=== PATIENT | female | born 1985 | race Caucasian/White ===

== ENCOUNTER 2018-07-20 15:42 | Emergency (ER) | payer OTHER ==
[2018-07-20] MEDS ORDERED: Sodium Chloride 0.9% 10 ML Syringe FLUSH PRN (16:06)
[2018-07-20] MEDS ORDERED: Sodium Chloride 0.9% 1,000 ML IV SCH (16:15)
--- NOTE | 2018-07-20 16:44 | EDM.PDOC ---
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 Started passing some blood clots yesterday afternoon and than heavier bleeding with more blood clots this afternoon for about the past 4 hours , now better. Has soaked about 4 pads this afternoon plus some clots in the toilet. Left Lower Abdominal Pain Score (Numeric/FACES): 9 - Related Data Allergies Allergy/AdvReac Type Severity Reaction Status Date / Time No Known Allergies Allergy Verified 07/20/18 15:54 Home Meds: Home Meds . 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: - Past Surgical History HEENT Surgical History: Reports: Other (See Below) Other HEENT Surgeries/Procedures: dental implants Female Surgical History: Reports: Section Social & Family History - Family History Family Medical History: Noncontributory - Tobacco Use Smoking Status *Q: Never Smoker - Caffeine Use Caffeine Use: Reports: Coffee - Recreational Drug Use Recreational Drug Use: No ED ROS GENERAL - Review of Systems Review Of Systems: See Below Constitutional: Denies: Fever (patient not aware of fever), Chills HEENT: Denies: Throat Pain Respiratory: Denies: Shortness of Breath Cardiovascular: Denies: Chest Pain GI/Abdominal: Reports: Abdominal Pain (no upper abd pain). Denies: Nausea, Vomiting : Reports: Discharge (there has been some spotting since the D and C 3 days ago, passing some clots yesterday afternoon and than again this afternoon), Pain (occasional cramping) Skin: Denies: Diaphoresis Neurological: Reports: Dizziness ED EXAM, RENAL/ - Physical Exam Exam: See Below General Appearance: Alert, Anxious (mild) Eye Exam: Bilateral Eye: PERRL Throat/Mouth: Normal Inspection Head: Atraumatic. No: Facial Swelling Neck: Normal Inspection, Supple Respiratory/Chest: No Respiratory Distress, Lungs Clear, Normal Breath Sounds Cardiovascular: Tachycardia GI/Abdominal: Soft, Tender (mild tenderness over the uterus) (Female) Exam: Normal External Exam, Vaginal Bleeding (very small amount of blood in the vagina, no clots visible at this time, not actively bleeding in a serious way at time of exam, there is tenderness over the uterus and bilat adexa ) Extremities: Normal Inspection. No: Pedal Edema, Leg Pain Skin Exam: Warm, Dry, Normal Color. No: Diaphoretic, Pallor Course - Vital Signs Last Recorded V/S: Last Vital Signs Temp 99.2 F 07/20/18 17:41 Pulse 84 07/20/18 17:41 Resp 20 07/20/18 17:41 BP 115/77 07/20/18 17:41 Pulse Ox 99 07/20/18 17:41 Orthostatic Blood Pressure [ 121/88 Standing] Orthostatic Blood Pressure [ 137/91 Supine] - Orders/Labs/Meds Labs: Laboratory Tests 07/20/18 Range/Units 16:25 WBC 13.33 H (3.98-10.04) K/mm3 RBC 4.67 (3.98-5.22) M/mm3 Hgb 13.3 (11.2-15.7) gm/L Hct 37.6 (34.1-44.9) % MCV 80.5 (79.4-94.8) fl MCH 28.5 (25.6-32.2) pg MCHC 35.4 (32.2-35.5) g/dl RDW Std Deviation 37.4 (36.4-46.3) fL Plt Count 317 (182-369) K/mm3 MPV 8.3 L (9.4-12.3) fl Neut % (Auto) 75.1 H (34.0-71.1) % Lymph % (Auto) 12.8 L (19.3-51.7) % Blaine % (Auto) 11.0 (4.7-12.5) % Eos % (Auto) 0.6 L (0.7-5.8) Baso % (Auto) 0.1 (0.1-1.2) % Neut # (Auto) 10.03 H (1.56-6.13) K/mm3 Lymph # (Auto) 1.70 (1.18-3.74) K/mm3 Blaine # (Auto) 1.46 H (0.24-0.36) K/mm3 Eos # (Auto) 0.08 (0.04-0.36) K/mm3 Baso # (Auto) 0.01 (0.01-0.08) K/mm3 Meds: Medications Discontinued Medications Generic Name Dose Route Start Last Admin Trade Name Freq PRN Reason Stop Dose Admin Sodium Chloride 1,000 mls @ 999 mls/hr 07/20/18 16:15 07/20/18 16:17 Normal Saline IV 999 mls/hr ONETIME [place] Administration Magnesium Hydroxide 30 ml 07/20/18 17:20 07/20/18 17:37 Milk Of Magnesia PO 07/20/18 17:21 30 ml ONETIME ONE Administration Sodium Chloride 10 ml 07/20/18 16:06 07/20/18 16:17 Saline Flush FLUSH 10 ml ASDIRECTED PRN Administration Keep Vein Open - Re-Assessments/Exams Free Text/Narrative Re-Assessment/Exam: 07/22/18 14:34 Hgb was 13.3, minimal bleeding at time of exam, no clots, ortho's were good with no significant change. Discussed with Dr Tilley, she has appt. to see Dr Tilley Samira AM. Decision made to discharge, stick with that plan. Discharge instr. as documented. Departure - Departure Time of Disposition: 17:25 Disposition: Home, Self-Care 01 Condition: Fair Clinical Impression: Vaginal bleeding - Discharge Information Referrals: PCP,None [Primary Care Provider] - Forms: ED Department Discharge Additional Instructions: rest, drink plenty of water to maintain hydration, tylenol q 6 to 8 hr as needed , continue stool softner once or twice daily, you may take extra laxative medication if needed if you do not have a BM within 4 to 6 hours of getting the MOM here in the ED at this time. See Dr Tilley tomorrow morning as planned. Return to ED if symptoms worsening in any way as discussed.
[2018-07-20] MEDS ORDERED: Magnesium Hydroxide 400 MG/5 ML Susp 30 ML Cup PO ONE (17:20)
== END 2018-07-20 17:45 | disposition home or self-care (01) ==
LOC: JD.ED 15:42
DX: O03.6 Delayed or excessive hemorrhage following complete or unspecified spontaneous abortion (principal)
CPT/HCPCS: 36415; 85025; 96360; 99284; A9270; J7040; 99283